=== PATIENT | female | born 2000 | race African-American/Black ===

== ENCOUNTER 2022-09-30 13:35 | Emergency (ER) | payer OTHER ==
[~2022-09-30] VITALS: Ht 182.9 cm; Wt 94.6 kg
[2022-09-30 14:15] LABS: Urine Bacteria FEW /hpf (None Seen); Urine Blood Negative /uL (Negative); Urine Hyaline Cast FEW /lpf (0 - 2); Urine Mucus FEW (None Seen); Urine Specific Gravity 1.031 (1.001-1.035); Urine WBC 3 /hpf (0 - 5)
[2022-09-30 18:33] VITALS: BP 140/87
[2022-09-30] MEDS ORDERED: NITR-87 PO (18:47)
== END 2022-09-30 18:53 | disposition home or self-care (01) ==
LOC: ER 13:35
DX: N39.0 Urinary tract infection, site not specified (principal); F17.210 Nicotine dependence, cigarettes, uncomplicated
CPT/HCPCS: 81001